=== PATIENT | female | born 1990 | race Caucasian/White ===

== ENCOUNTER 2019-03-07 15:23 | Emergency (ER) | payer SELFPAY ==
[~2019-03-07] VITALS: Ht 162.6 cm; Wt 44.9 kg
[2019-03-07 15:28] VITALS: TEMP 97.7
[2019-03-07] MEDS ORDERED: PRENATAL MVI PO (15:58)
[2019-03-07 16:01] VITALS: BP 112/68; PULSE 90
== END 2019-03-07 16:07 | disposition home or self-care (01) ==
LOC: COL.ER 15:23
DX: Z32.01 Encounter for pregnancy test, result positive (principal); F17.210 Nicotine dependence, cigarettes, uncomplicated

== ENCOUNTER 2019-03-11 12:59 | Emergency (ER) | payer MEDICAID ==
[~2019-03-11] VITALS: Ht 162.6 cm; Wt 44.5 kg
[~2019-03-11 12:59] MED LIST: PRENATAL MVI PO
[2019-03-11 13:03] VITALS: TEMP 98.5
[2019-03-11 13:22] LABS: COLLECTION METHOD CLEAN CATCH
[2019-03-11 13:24] LABS: BASO % 0.2 % (0.0-2.0); EOS # 0.1 (0.0-0.7); EOS % 0.6 % (0-4.0); GRAN # 8.6 (1.4-6.5); GRAN % 71.2 % (42.2-75.2); HEMATOCRIT 45.4 % (37.0-47.0); HEMOGLOBIN 15.5 g/dl (12.5-16.0); LYMPH # 2.5 (1.2-3.4); MEAN CELL VOLUME 95 fl (80.0-100.0); MEAN CORPUSCULAR HEMOGLOBIN 33 pg (27.0-31.0); MEAN CORPUSCULAR HGB CONC 34 g/dl (33.0-37.0); MEAN PLATELET VOLUME 10.8 fl (7.4-10.4); MONO # 0.8 (0.1-0.6); MONO % 6.7 % (1.7-9.3); PLATELET COUNT 164 K/mm3 (130-400); RED BLOOD COUNT 4.76 M/mm3 (4.10-5.30); REDCELL DISTRIBUTION WIDTH-CV 11.9 % (11.5-14.5)
[2019-03-11 13:52] LABS: ALANINE AMINOTRANSFERASE 9 U/L (9-52); ALBUMIN 4.4 gm/dL (3.5-5.0); ALKALINE PHOSPHATASE 63 U/L (50-136); ANION GAP 9 mmol/L (7-16); AST,SGOT 20 U/L (15-37); BILIRUBIN,TOTAL 0.3 mg/dL (0.0-1.0); BLOOD UREA NITROGEN 15 mg/dL (7-17); CALCIUM 9.8 mg/dL (8.4-10.2); CARBON DIOXIDE 26 mmol/L (22-30); CHLORIDE 104 mmol/L (98-107); CREATININE, serum 0.62 (0.52-1.25); GLUCOSE 88 mg/dL (74-106); LIPASE 44 U/L (23-300); POTASSIUM 3.7 mmol/L (3.4-5.0); SODIUM 139 mmol/L (137-145); TOTAL PROTEIN 7.2 gm/dL (6.4-8.2)
[2019-03-11 13:53] LABS: C-REACTIVE PROTEIN < 0.5 mg/dL (0.0-0.9)
[2019-03-11 14:05] LABS: HCG,QUANTITATIVE 1154 mIU/mL (0-5)
[2019-03-11 14:14] LABS: AMORPHOUS CRYSTAL Present /uL; MUCOUS Present /lpf; PH 6 (5-8); URINE APPEARANCE Cloudy; URINE BACTERIA Rare /hpf; URINE BILIRUBIN Negative (NEGATIVE); URINE BLOOD Negative (NEGATIVE); URINE COLOR Yellow; URINE GLUCOSE Negative (NEGATIVE); URINE KETONE Negative (NEGATIVE); URINE LEUKOCYTE ESTERASE Negative (NEGATIVE); URINE NITRATE Negative (NEGATIVE); URINE PROTEIN(semi-quant) Negative (NEGATIVE); URINE UROBILINOGEN Negative (NEGATIVE)
[2019-03-11] MEDS ORDERED: NORCO 325 MG-51 TAB PO (16:45)
[2019-03-11] MEDS ORDERED: PHENERGAN 25 TA25 MG PO (16:45)
[2019-03-11 17:14] VITALS: BP 99/66; PULSE 76
== END 2019-03-11 17:15 | disposition home or self-care (01) ==
LOC: COL.ER 12:59
PROVIDERS: Emergency Medicine
DX: O26.891 Other specified pregnancy related conditions, first trimester (principal); R10.11 Right upper quadrant pain; Z3A.01 Less than 8 weeks gestation of pregnancy
CPT/HCPCS: J2270; J2550; J7030